=== PATIENT | female | born 1975 ===

== ENCOUNTER 2018-03-06 14:00 | Emergency (ER) | payer MEDICAID, OTHER ==
[2018-03-06 14:25] VITALS: BP 117/77; PULSE 73; RESP 18; TEMP 98.5; O2SAT 97; BMI 25.6
[2018-03-06] MEDS ORDERED: Fluorescein 1 mg Ophthalmic Strip ONE (14:42)
[2018-03-06] MEDS ORDERED: PROPARACAINE/FLUORESCEIN SOD 100 DROP/5 ML BOTTLE OU STA (14:54)
--- NOTE | 2018-03-06 14:57 | C.PDOC ---
History Of Present Illness 42 y/o female presents to the ED complaining of foreign body sensation to the right eye since 3 days. Patient admits to wearing glitter makeup and contacts prior to onset of symptoms. She then removed the contacts, and is still concerned for possible FB. Associated with light sensitivity and excessive tearing. Denies visual loss or eye discharge. Time Seen by Provider: 03/06/18 14:26 Chief Complaint (Nursing): Eye Problem History Per: Patient History/Exam Limitations: no limitations Onset/Duration Of Symptoms: Days (x3) Current Symptoms Are (Timing): Still Present Associated Symptoms: FB Sensation Past Medical History Reviewed: Historical Data, Nursing Documentation, Vital Signs Vital Signs: Last Vital Signs Temp 98.5 F 03/06/18 14:14 Pulse 73 03/06/18 14:14 Resp 18 03/06/18 14:14 BP 117/77 03/06/18 14:14 Pulse Ox 97 03/06/18 14:14 Family History: States: Unknown Family Hx - Social History Hx Tobacco Use: Yes (light smoker) Hx Alcohol Use: No Hx Substance Use: No - Immunization History Hx Tetanus Toxoid Vaccination: No Hx Influenza Vaccination: Yes Hx Pneumococcal Vaccination: No Review Of Systems Constitutional: Positive for: Other (Increased tearing). Negative for: Fever Eyes: Positive for: Pain, Other (Foreign body, right eye). Negative for: Vision Change Physical Exam - Physical Exam Appears: Non-toxic, No Acute Distress Skin: Warm, Dry Head: Atraumatic, Normacephalic Eye(s): bilateral: PERRL, EOMI, Other (Cobblestoning to the conjunctiva, with mild injection; No hyphema) Nose: Normal Oral Mucosa: Moist Neurological/Psych: Oriented x3, Normal Speech, Normal Cranial Nerves ED Course And Treatment O2 Sat by Pulse Oximetry: 97 (RA) Pulse Ox Interpretation: Normal Medical Decision Making Medical Decision Making: Impression: Eye FB sensation Plan: Examined eye using fluorescein w/ tetracaine and nicole lamp, no FB or ulceration noted. Plan is for patient to be discharged home with antibiotics, pain medication, and referral to ophthalmology. Patient was advised to use eye patch as needed for light sensitivity. Disposition Counseled Patient/Family Regarding: Diagnosis, Need For Followup, Rx Given - Disposition Referrals: Freddy Jaramillo [Staff Provider] - Disposition: HOME/ ROUTINE Disposition Time: 14:56 Condition: IMPROVED Prescriptions: Acetaminophen [Tylenol Extra Strength] 2 tab PO Q6 #30 tablet Ciprofloxacin 0.3% [Ciloxan 0.3% Ophth SOLN] 2 drop OD Q2 #1 bottle Ibuprofen [Motrin] 600 mg PO Q6 #30 tab Instructions: Foreign Body in Eye (DC) Forms: [facility] (Moroccan), Work Excuse - Clinical Impression Clinical Impression: Sensation of foreign body in eye, Conjunctivitis - Scribe Statement The provider has reviewed the documentation as recorded by the Scribe (Milana Zamarripa) Provider Attestation: All medical record entries made by the Scribe were at my direction and personally dictated by me. I have reviewed the chart and agree that the record accurately reflects my personal performance of the history, physical exam, medical decision making, and the department course for this patient. I have also personally directed, reviewed, and agree with the discharge instructions and disposition.
== END 2018-03-06 15:05 | disposition home or self-care (01) ==
LOC: C.ER 14:00
DX: H10.9 Unspecified conjunctivitis (principal)